=== PATIENT | female | born 1990 | race Caucasian/White ===

== ENCOUNTER → 2016-07-12 | Outpatient (CLI) | payer OTHER ==
[~2016-07-12] MED LIST: CIPRO250 M1 PO; COLACE PO; HYDROCODONE/APA1 T16 PO
--- NOTE | ~2016-07-12 | US77 ---
[facility] A Service of [facility] [place] RADIOLOGY TEXT RESULTS PATIENT: AVANI PINK LOCATION: [facility] : 88 UNIT #: [id number] AGE: [address]: Ovi Andrade MD SEX: F ORDER DR: [id number] [facility] [address] [place], [place] [address] [id number] O MR#: [id number] Acc #: [id number] NAME: AVANI PINK : 1990 SEX: F STUDY DATE/TIME: 07/12/2016 12:32 UNIT: [facility] ROOM: STUDY DESCRIPTION: US Kidney Bilateral Complete Attending Physician: Ovi Andrade M.D. Referring Physician: Ovi Andrade M.D. Ordering Physician: Ovi Andrade M.D. Primary Care Physician: Ovi Andrade M.D. MEDICAL IMAGING REPORT This report is preliminary unless electronic signature is present EXAM Renal ultrasound. DATE OF EXAM 07/12/2016 HISTORY Left nephrectomy for large renal calculi. Followup right renal stones and right flank pain since 01/26/2016. FINDINGS The right kidney measured 11.4 cm in longitudinal dimensions. There is no evidence of hydronephrosis or nephrolithiasis. No cystic or solid mass lesions were seen on the right kidney. There is normal renal cortical echogenicity. The left kidney is surgically absent as per patient history. Images of the bladder are normal. IMPRESSION 1. Negative right kidney. 2. Surgical absence of the left kidney. 3. Images of the bladder are normal. Dictated by... Harsh White M.D. THIS IS AN ELECTRONICALLY VERIFIED REPORT Harsh White M.D. at 07/13/2016 7:35 AM JEFF/opal TD: 07/12/2016 20:37 JOB #: [id number] MEDICAL IMAGING REPORT [facility] A Service of [facility] [place] RADIOLOGY TEXT RESULTS PATIENT: AVANI PINK LOCATION: [facility] #: [id number] : [birth year] UNIT #: [id number] AGE: [address]: Ovi Andarde MD SEX: F ORDER DR: SHASHANK
== END | disposition home or self-care (01) ==
LOC: CGUS 11:52
DX: M54.5 Low back pain (principal); Z90.5 Acquired absence of kidney
CPT/HCPCS: 76770